=== PATIENT | female | born 1990 | race African-American/Black ===

== ENCOUNTER 2020-11-14 19:33 | Emergency (ER) | payer MEDICAID ==
[~2020-11-14] VITALS: Ht 162.6 cm; Wt 54.0 kg
--- NOTE | 2020-11-14 21:04 | PHYS DOC ---
Past Medical History Past Medical History: No Pertinent History Past Surgical History: , Other Additional Past Surgical Histo: DNC Smoking Status: Current Every Day Smoker Alcohol Use: None Drug Use: None General Adult EDM: Chief Complaint: MULTIPLE COMPLAINTS HPI: HPI: Patient is a 30 year old female presents emergency department reporting she is 11 weeks and has headache and does not know what she should take for her headache.. Patient states that her last menstrual period was September 13, 2020, she has not started any OB care yet, she is a 5 para 3 SAB 1, patient states she has had no problems with this , patient does state t hat she has some malodorous vaginal discharge and wishes to be checked for a yeast infection. Patient denies any STI concerns. Patient denies any recent fever or chills, cough, congestion, nausea, vomiting, diarrhea, abdominal pains. Patient denies any other physical illnesses or physical complaints. Patient does state that her headache is just like her normal headaches that she takes Tylenol or Motrin for but because she is she is not sure which she can take now. Review of Systems: Review of Systems: 14 body systems of review of systems have been reviewed. See HPI for pertinent positives and negative responses, otherwise all other systems are negative, nonpertinent or noncontributory. Heart Score: Risk Factors: Risk Factors: DM, Current or recent (<one month) smoker, HTN, HLP, family history of CAD, obesity. Risk Scores: Score 0 - 3: 2.5% MACE over next 6 weeks - Discharge Home Score 4 - 6: 20.3% MACE over next 6 weeks - Admit for Clinical Observation Score 7 - 10: 72.7% MACE over next 6 weeks - Early Invasive Strategies Current Medications: Patient does not take any medications at home. Allergies: Allergies: Allergies Coded Allergies Type Severity Reaction Last Updated Verified No Known Drug Allergies 03/30/14 No Physical Exam: PE: Constitutional: Well developed, well nourished, no acute distress, non-toxic appearance. HENT: Normocephalic, atraumatic, bilateral external ears normal, oropharynx moist, no oral exudates, nose normal. Eyes: PERRLA, EOMI, conjunctiva normal, no discharge. Neck: Normal range of motion, no tenderness, supple, no stridor. Cardiovascular:Heart rate regular rhythm, no murmur Lungs & Thorax: Bilateral breath sounds clear to auscultation Abdomen: Bowel sounds normal, soft, no tenderness, no masses, no pulsatile masses. Skin: Warm, dry, no erythema, no rash. Back: No tenderness, no CVA tenderness. Extremities: No tenderness, no cyanosis, no clubbing, ROM intact, no edema. Neurologic: Alert and oriented X 3, normal motor function, normal sensory function, no focal deficits noted. Psychologic: Affect normal, judgement normal, mood normal. : Pelvic exam performed with female ED nurse at bedside, external vaginal exam skin intact, no lesions noted, no swelling noted, no rashes noted, no discharge from vagina noted. Speculum exam normal pink tissue without discharge, the cervical os is closed, GC/chlamydia cultures obtained, wet prep obtained and sent to lab. Bimanual exam noted no cervical motion tenderness or adnexal pain. Current Patient Data: Labs: Laboratory Tests Test 11/14/20 19:44 POC Urine HCG, Qualitative Hcg positive (Negative) Vital Signs: Vital Signs Date Time Temp Pulse Resp B/P (MAP) Pulse Ox O2 Delivery O2 Flow Rate FiO2 11/14/20 19:53 98.3 80 16 119/69 (86) 99 Room Air 98.3 EKG: EKG: [] Radiology/Procedures: Radiology/Procedures: [] Course & Med Decision Making: Course & Med Decision Making Pertinent Labs and Imaging studies reviewed. (See chart for details) 30-year-old female presents emergency department stating she has a headache like her normal headaches and is 11 weeks . Patient states that she does not know what she can take for headaches. Patient also is concerned about a vaginal discharge that she might have a yeast infection, patient has no STI concerns. A pelvic exam was performed and specimen sent to lab, wet prep come back concerning for bacterial vaginosis. GC chlamydia cultures pending. Patient had very scant discharge, vaginal structures were pink without irritation or erythema, GC/chlamydia unlikely, trichomonas unlikely, possible yeast infection versus BV. Patient given 1 g Tylenol for her headache 6/10 on a 1-10 pain scale. Reexamination of patient, patient states that her headache is relieved, discussed with patient diagnosis of bacterial vaginosis and need to start on antibiotics for the next week. Discussed with patient discharge instructions, need to follow-up with OB soon, may take Tylenol for headaches as needed, return to emergency department concerns, patient gave verbal understanding of these instructions, patient had no further questions or concerns, patient discharged home without incident. ED nurse care for patient states that patient had left prior to receiving her written discharge instructions and prescriptions, states she called patient and patient wished to have her prescriptions called into her pharmacy. Patient's medications were transmitted electronically to her pharmacy of choice. Diagnoses bacterial vaginosis, unlikely trichomonas, gonorrhea, chlamydia, herpes infection, syphilis infection. Dragon Disclaimer: [email or web address] Disclaimer: This electronic medical record was generated, in whole or in part, using a voice recognition dictation system. Departure Departure Impression: Primary Impression: BV (bacterial vaginosis) Additional Impressions: Qualified Codes: Z3A.11 - 11 weeks gestation of Headache Qualified Codes: R51.9 - Headache, unspecified Disposition: 01 DC HOME SELF CARE/HOMELESS Condition: GOOD Referrals: NO PCP (PCP) Patient Instructions: Bacterial Vaginosis Additional Instructions: Please take medications as prescribed, return to the emergency department for worsening symptoms or other concerns, please keep your OB appointment. You can use Tylenol for your headaches at home. Scripts Metronidazole (METRONIDAZOLE) 500 Mg Tablet 1 TAB PO BID for BACTERIAL INFECTION for 7 Days, #14 TAB 0 Refills Prov: RADHA BRASHER APRN 11/15/20 RADHA BRASHER APRN Nov 14, 2020 21:03
[2020-11-14 21:25] LABS: BILIRUBIN,URINE NEGATIVE (NEG); CLARITY,URINE CLEAR; COLOR,URINE YELLOW; NITRITE,URINE NEGATIVE (NEG); PROTEIN,URINE NEGATIVE (NEG-TRACE); UROBILINOGEN,URINE 0.2 mg/dL (0.2 mg/dL)
[2020-11-14 21:33] LABS: BACTERIA,URINE 0 /HPF (0-FEW); RBC,URINE 0 /HPF (0-2); WBC,URINE RARE /HPF (0-4)
[2020-11-14] MEDS ORDERED: ACETAMINOPHEN 500 MG TABLET PO ONE (21:45)
[2020-11-14 23:09] VITALS: BP 109/60
[2020-11-14] MEDS ORDERED: METR-34 PO (23:36)
[2020-11-15] MEDS ORDERED: METR-34 PO (00:19)
[2020-11-16 19:16] LABS: GC PROBE Negative (Negative)
== END 2020-11-14 23:37 | disposition home or self-care (01) ==
LOC: ER 19:33
DX: O23.591 Infection of other part of genital tract in pregnancy, first trimester (principal); B96.89 Other specified bacterial agents as the cause of diseases classified elsewhere; R51.9 Headache, unspecified; O99.331 Smoking (tobacco) complicating pregnancy, first trimester; Z3A.11 11 weeks gestation of pregnancy
CPT/HCPCS: 81001; 81025; 87491; 87591; 99284; Q0111

== ENCOUNTER 2022-04-16 18:28 | Emergency (ER) | payer MEDICAID ==
[~2022-04-16 18:28] MED LIST: METR-34 PO
== END 2022-04-16 20:40 | disposition left against medical advice (07) ==
LOC: ER 18:28
DX: R22.32 Localized swelling, mass and lump, left upper limb (principal); Z53.21 Procedure and treatment not carried out due to patient leaving prior to being seen by health care provider